=== PATIENT | female | born 2005 | race Caucasian/White ===

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

== ENCOUNTER 2023-11-21 10:11 | Emergency (ER) | payer OTHER ==
[~2023-11-21] VITALS: Ht 157.4 cm; Wt 54.4 kg
[2023-11-21] MEDS ORDERED: ACETAMINOPHEN 325 MG TAB PO ONE (10:40)
== END 2023-11-21 12:32 | disposition home or self-care (01) ==
LOC: ED 10:11
DX: U07.1 COVID-19 (principal); R11.2 Nausea with vomiting, unspecified

== ENCOUNTER → 2024-01-08 | Outpatient (CLI) | payer OTHER | END | disposition home or self-care (01) | LOC: US 12:52 | PROVIDERS: ATTEND Nurse Practitioner Women's Health | DX: R10.2 Pelvic and perineal pain (principal); Z97.5 Presence of (intrauterine) contraceptive device ==

== ENCOUNTER → 2024-04-01 | Outpatient (CLI) | payer OTHER | END | disposition home or self-care (01) | LOC: US 12:47 | PROVIDERS: ATTEND Nurse Practitioner Women's Health | DX: N83.201 Unspecified ovarian cyst, right side (principal) ==

== ENCOUNTER 2024-05-09 16:38 | Emergency (ER) | payer OTHER ==
[~2024-05-09] VITALS: Wt 54.4 kg
[2024-05-09] MEDS ORDERED: Metoclopramide Hydrochloride 10 MG/2 ML VIAL IV ONE (16:55)
[2024-05-09] MEDS ORDERED: diphenhydrAMINE hydrochloride 50 MG/ML VIAL IV ONE (16:55)
[2024-05-09] MEDS ORDERED: FAMOTIDINE 50 ML IV ONE (16:55)
[2024-05-09] MEDS ORDERED: SODIUM CHLORIDE 0.9% 1,000 ML IV ONE (16:55)
[2024-05-09 17:30] LABS: BASO # 0.1 10*3/uL (0.0-0.1); BASO % 0.4 % (0.0-1.0); EOS # 0.1 10*3/uL (0.0-0.4); HEMATOCRIT 41.2 % (37.0-47.0); MEAN CELL VOLUME 89.8 fl (81.0-99.0); MEAN CORPUSCULAR HGB 29.4 pg (27.0-31.0); MEAN CORPUSCULAR HGB CONC 32.8 g/dl (33.0-37.0); MEAN PLATELET VOLUME 8.8 fl (9.6-12.3); MONO # 0.6 10*3/uL (0.1-1.0); MONO % 4.6 % (3.0-9.0); NEUT # 12.1 10*3/uL (2.3-7.9); PLATELET COUNT AUTOMATED 296 10*3/uL (130-400); RED BLOOD COUNT 4.59 10*6/uL (4.10-5.10); RED CELL DISTRI WIDTH 12.7 % (0-14.5); WHITE BLOOD COUNT 13.4 10*3/uL (4.8-10.8)
[2024-05-09 17:50] LABS: BUN 12 mg/dl (9-23); CHLORIDE 107 mmol/L (98-107); POTASSIUM 3.8 mmol/L (3.4-5.1)
[2024-05-09] MEDS ORDERED: REGLAN10 M1 PO (18:00)
== END 2024-05-09 18:06 | disposition home or self-care (01) ==
LOC: ED 16:38
PROVIDERS: Emergency Medicine
DX: R11.2 Nausea with vomiting, unspecified (principal); R19.7 Diarrhea, unspecified

== ENCOUNTER 2024-07-20 14:10 | Emergency (ER) | payer SELFPAY ==
[~2024-07-20 14:10] MED LIST changes: +REGLAN10 M1 PO
== END 2024-07-20 19:30 | disposition left against medical advice (07) ==
LOC: ED 14:10
DX: R10.9 Unspecified abdominal pain (principal); R14.0 Abdominal distension (gaseous); Z53.21 Procedure and treatment not carried out due to patient leaving prior to being seen by health care provider

== ENCOUNTER 2024-10-05 19:27 | Emergency (ER) | payer SELFPAY ==
[~2024-10-05] VITALS: Ht 157.5 cm; Wt 54.4 kg
== END 2024-10-05 21:25 | disposition home or self-care (01) ==
LOC: ED 19:27
DX: Z32.01 Encounter for pregnancy test, result positive (principal); Z79.899 Other long term (current) drug therapy